=== PATIENT | female | born 1990 | race Hispanic/Latino ===

== ENCOUNTER → 2024-01-30 09:15 | Outpatient (REF) | payer OTHER, SELFPAY ==
[2024-01-30 11:26] LABS: ALT (SGPT) 31 U/L (0-35); AST (SGOT) 27 U/L (14-36); Albumin 4.4 g/dl (3.5-5.0); Alkaline Phosphatase 72 U/L (38-126); Blood Urea Nitrogen 10 mg/dl (7-17); Calcium 9.3 mg/dl (8.4-10.2); Carbon Dioxide 28 mmol/L (22-30); Chloride 105 mmol/L (98-107); Glucose 84 mg/dl (70-99); Potassium 4.5 mmol/L (3.5-5.1); Sodium 139 mmol/L (135-145); Total Bilirubin 0.4 mg/dl (0.2-1.3); Total Protein 7.6 g/dl (6.3-8.2); eGFR > 60.00
[2024-01-30 12:31] LABS: Glycohemoglobin (HgbA1c) 5.6 % (4.0-5.6)
[2024-01-30 13:06] LABS: Vitamin D, 25-OH*** 15.4 ng/mL (30-80)
== END ==
LOC: REG 09:15
PROVIDERS: ATTENDING PHYSICIAN Nurse Practitioner Acute Care
DX: E55.9 Vitamin D deficiency, unspecified (principal); R73.03 Prediabetes
CPT/HCPCS: 36415; 80053; 82306; 83036

== ENCOUNTER → 2024-05-23 08:07 | Outpatient (REF) | payer OTHER, SELFPAY ==
[2024-05-23 09:15] LABS: Vitamin D, 25-OH*** 43.6 ng/mL (30-80)
== END ==
LOC: CLINIC 08:07
PROVIDERS: ATTENDING PHYSICIAN Nurse Practitioner Adult Health
DX: E55.9 Vitamin D deficiency, unspecified (principal)
CPT/HCPCS: 36415; 82306

== ENCOUNTER → 2024-12-05 07:28 | Outpatient (REF) | payer OTHER, SELFPAY ==
[2024-12-05 09:03] LABS: Vitamin D, 25-OH*** 32.8 ng/mL (30-80)
[2024-12-05 10:39] LABS: Glycohemoglobin (HgbA1c) 5.3 % (4.0-5.6)
== END ==
LOC: REG 07:28
PROVIDERS: ATTENDING PHYSICIAN Nurse Practitioner Adult Health
DX: R73.03 Prediabetes (principal); E55.9 Vitamin D deficiency, unspecified
CPT/HCPCS: 36415; 82306; 83036

== ENCOUNTER → 2025-05-13 07:31 | Outpatient (REF) | payer OTHER, SELFPAY ==
[2025-05-13 10:57] LABS: Vitamin D, 25-OH*** 26.3 ng/mL (30-80)
== END ==
LOC: REG 07:31
PROVIDERS: ATTENDING PHYSICIAN Nurse Practitioner Adult Health
DX: E55.9 Vitamin D deficiency, unspecified (principal)
CPT/HCPCS: 36415; 82306

== ENCOUNTER → 2025-09-02 07:04 | Outpatient (REF) | payer OTHER, SELFPAY ==
[2025-09-02 08:26] LABS: Vitamin D, 25-OH*** 49.8 ng/mL (30-80)
== END ==
LOC: CLINIC 07:04
PROVIDERS: ATTENDING PHYSICIAN Nurse Practitioner Adult Health
DX: E55.9 Vitamin D deficiency, unspecified (principal)
CPT/HCPCS: 36415; 82306